=== PATIENT | female | born 1980 | race Caucasian/White ===

== ENCOUNTER → 2021-03-22 | Outpatient (CLI) | payer OTHER | LOC: COL.CARD 03-16 07:30 | DX: R00.2 Palpitations (principal) ==

== ENCOUNTER → 2022-02-17 | Outpatient (CLI) | payer OTHER | LOC: MC.RAD 08:51 | DX: Z12.31 Encounter for screening mammogram for malignant neoplasm of breast (principal) ==

== ENCOUNTER → 2022-02-24 | Outpatient (CLI) | payer OTHER | LOC: MC.RAD 12:52 | DX: R92.8 Other abnormal and inconclusive findings on diagnostic imaging of breast (principal) ==

== ENCOUNTER → 2022-09-29 | Outpatient (CLI) | payer OTHER | LOC: MC.RAD 12:56 | DX: N64.89 Other specified disorders of breast (principal); N63.10 Unspecified lump in the right breast, unspecified quadrant ==